=== PATIENT | female | born 1950 | race Caucasian/White ===

== ENCOUNTER → 2016-07-31 | Outpatient (CLI) | payer OTHER | LOC: RAD 07:13 | PROVIDERS: ATTEND Nurse Practitioner Family | DX: Z12.31 Encounter for screening mammogram for malignant neoplasm of breast (principal) ==

== ENCOUNTER → 2016-08-01 | Outpatient (CLI) | payer OTHER ==
[2016-08-01 07:37] LABS: BASOPHILS % (AUTO) 1 % (0-2); EOSINOPHILS # (AUTO) 0.1 10^3uL; EOSINOPHILS % (AUTO) 2 % (0-4); LYMPHOCYTES # (AUTO) 1.7 X10^3; MEAN CORPUSCULAR HGB CONC 35.4 g/dL (31.0-37.0); MEAN CORPUSCULAR VOLUME 90 FL (80-100); MEAN PLATELET VOLUME 9.8 FL (6.0-9.5); MONOCYTES # (AUTO) 0.5 X10^3; MONOCYTES % (AUTO) 8 % (3-11); NEUTROPHILS # (AUTO) 3.8 X10^3; NEUTROPHILS % (AUTO) 61 % (51-67); PLATELET COUNT 173 10^3uL (150-450)
[2016-08-01 07:38] LABS: MEAN CORPUSCULAR HEMOGLOBIN 31.7 PG (26.0-34.0)
[2016-08-01 08:04] LABS: ALBUMIN 4.6 g/dL (3.4-5.0); ANION GAP 17.7 MEQ/L (3-15); CALCULATED IONIZED CALCIUM 4.1 mg/dL (3.8-4.6); TOTAL PROTEIN 7.5 g/dL (6.4-8.5)
== END ==
LOC: LAB 07:09
PROVIDERS: ATTEND Family Medicine
DX: I10 Essential (primary) hypertension (principal); E78.5 Hyperlipidemia, unspecified
CPT/HCPCS: 36415; 80053; 80061; 85025

== ENCOUNTER → 2016-08-23 | Outpatient (REF) | payer OTHER ==
[~2016-08-23] MED LIST: ASCO500T20 PO; ASPI-586 PO; CHOL200018 PO; CYCL-265 PO; ESTR2TAB PO; HYDR-3754 PO; LSNP20T PO; MULT-35 PO; NAPR220T76 PO; OMG1KC PO; SMV10T PO
[2016-08-23 11:53] LABS: ANION GAP 17.3 MEQ/L (3-15)
== END ==
LOC: LAB 11:00
PROVIDERS: ATTEND Nurse Practitioner Family
DX: I10 Essential (primary) hypertension (principal); R73.9 Hyperglycemia, unspecified
CPT/HCPCS: 80048; 83036